=== PATIENT | male | born 1995 | race Caucasian/White ===

== ENCOUNTER 2017-06-05 10:19 | Emergency (ER) | payer OTHER ==
[2017-06-05 10:25] VITALS: BP 124/84; PULSE 80; RESP 16; TEMP 97.9; O2SAT 94
--- NOTE | 2017-06-05 11:03 | EDPHY ---
H & P Time Seen by Provider: 06/05/17 10:31 HPI/ROS: CHIEF COMPLAINT: Right shoulder injury, right ankle injury HISTORY OF PRESENT ILLNESS: 21-year-old male presents to the emergency department complaining of pain in the right shoulder. He denies any known trauma or injury. He has had problems with this same shoulder in the past when he was playing baseball. He has pain especially with range of motion. Denies feeling short of breath. Denies pleuritic chest pain. Denies pain in his neck. Denies paresthesias in his upper extremities. Denies pain is right wrist or elbow. Denies symptoms in the left upper extremity. He is also complaining of pain in his right ankle. He states 3 days ago he had a heavy table collapsed on his right foot and ankle and had a lift the table up or get his foot out. He is complaining of pain to the posterior aspect of the right foot and ankle. He has pain especially when he tries to bear weight. Denies numbness or tingling in his toes, pain in his right knee or hip. He believes his tetanus shot is current. REVIEW OF SYSTEMS: Constitutional: No fever, no chills. Eyes: No double or blurry vision. ENT: No sore throat. Respiratory: No cough, no shortness of breath. Cardiac: No chest pain. Gastrointestinal: No abdominal pain, vomiting or diarrhea. Genitourinary: No dysuria. Musculoskeletal: No neck or back pain. Skin: Abrasions. No rashes. Neurological: No headache. Past Medical/Surgical History: Previous right shoulder problems from playing baseball Social History: [employer] student from [place] Smoking Status: Current every day smoker Physical Exam: General Appearance: Alert, no distress. No visible signs of trauma to his head. He is mentating normally and answering questions appropriately. Eyes: Pupils equal and round. Extraocular motions are all intact. ENT: Mouth: Mucous membranes moist. Respiratory: No wheezing, rhonchi, or rales, lungs are clear to auscultation. Cardiovascular: Regular rate and rhythm. Gastrointestinal: Abdomen is soft and nontender, no masses, no rebound or guarding, bowel sounds normal. Neurological: Alert and oriented x 3, cranial nerves II through XII grossly intact Skin: Superficial abrasions to the right lower leg and to the posterior aspect of the right ankle just medial to the Achilles tendon. Warm and dry, no rashes. Musculoskeletal: Nontender to palpate along the cervical, thoracic or lumbar spine. Neck is supple. Extremities: Full range of motion and no peripheral edema. Reproducible pain with palpation over the right posterior superior shoulder. He has no pain with palpation over the AC joint on the right side. He has full range of motion of the right shoulder however external rotation as well as flexing and extending his right shoulder does cause discomfort. He has normal and equal strength for the upper extremities bilaterally. Right ankle reveals no obvious effusion. No pain with palpation to the medial or lateral malleolus. He has full dorsi and plantar flexion. He has some mild pain with palpation to the posterior medial aspect of his right ankle just anterior to the Achilles tendon. Achilles tendon is intact. He has an antalgic gait. Normal sensation to light touch with normal 2 point discrimination. Strong dorsalis pedis pulse on the dorsal aspect of the right foot. Psychiatric: Patient is oriented X 3, there is no agitation. Constitutional: Initial Vital Signs Temperature (C) 36.6 C 06/05/17 10:23 Heart Rate 80 06/05/17 10:23 Respiratory Rate 16 06/05/17 10:23 Blood Pressure 124/84 H 06/05/17 10:23 O2 Sat (%) 94 06/05/17 10:23 O2 Delivery Mode Room Air Allergies/Adverse Reactions: amoxicillin [From Augmentin] Allergy (Verified 06/05/17 10:25) cephalexin [From Keflex] Allergy (Verified 06/05/17 10:25) clavulanic acid [From Augmentin] Allergy (Verified 06/05/17 10:25) Penicillins Allergy (Verified 06/05/17 10:25) Medical Decision Making - Diagnostics Imaging Results: X-rays of the right ankle and right shoulder reveal no fractures. This is reviewed by myself the PAC system. Radiology interpretation to follow. Imaging: I viewed and interpreted images myself Procedures: Patient was placed in a Padilla boot and right shoulder sling and examined post application in good placement with normal [employer]. ED Course/Re-evaluation: 21-year-old male presents to the emergency department with right shoulder right ankle injury. X-rays reveal no fractures. Was placed in a Padilla boot and given a sling for his right shoulder. He was also given orthopedic referral. Differential Diagnosis: Including but not limited to fracture, dislocation, contusion, sprain Departure - Departure Disposition: Home, Routine, Self-Care Clinical Impression: Sprain of right shoulder Qualifiers: Encounter type: initial encounter Shoulder sprain type: unspecified sprain Qualified Code(s): S43.401A - Unspecified sprain of right shoulder joint, initial encounter Right ankle sprain Qualifiers: Encounter type: initial encounter Involved ligament of ankle: unspecified ligament Qualified Code(s): S93.401A - Sprain of unspecified ligament of right ankle, initial encounter Abrasion of right lower leg Qualifiers: Encounter type: initial encounter Qualified Code(s): S80.811A - Abrasion, right lower leg, initial encounter Condition: Good Instructions: Ankle Sprain (ED), Shoulder Sprain (ED), Acute Wounds (ED), Abrasion (ED) Additional Instructions: Sling for comfort and support. Padilla boot as needed for stability. Return to the emergency department if you develop numbness or tingling in your fingers or toes, feelings of weakness in her upper extremities, or if you feel worse in any way. Follow up with orthopedic surgeon in 1 week to recheck. Referrals: Mike Leiva MD [Medical Doctor] - 5-7 days, call for appt. (Orthopedic surgeon on-call)
== END 2017-06-05 11:15 | disposition home or self-care (01) ==
DX: S43.401A Unspecified sprain of right shoulder joint, initial encounter (principal); S93.401A Sprain of unspecified ligament of right ankle, initial encounter; S80.11XA Contusion of right lower leg, initial encounter; F17.200 Nicotine dependence, unspecified, uncomplicated; X58.XXXA Exposure to other specified factors, initial encounter; Y99.8 Other external cause status; Y93.64 Activity, baseball